=== PATIENT | male | born 1965 | race Caucasian/White ===

== ENCOUNTER 2024-05-25 06:50 | Day surgery (SDC) | payer BC ==
[~2024-05-25 06:50] MED LIST: Brimonidine 0.2% Ophth Soln 5 ML Bottle ONE; Dexamethasone/Neomycin/Polymyxin B Ophth Oint 3.5 GM Tube ONE; Lidocaine 1% 2 ML ONE; Phenyleprhine/Ketorolac 4 ML Vial ONE; Povidone-Iodine 5% Sterile Ophth Soln 30 ML Bottle ONE; Proparacaine 0.5% Ophth Soln 15 ML Bottle ONE
[2024-05-25] MEDS: Cyclopentolate 1% Opth Soln 2 ML Bottle EYERT SCH (07:00)
[2024-05-25] MEDS: Phenylephrine 2.5% Ophth Soln 2 ML Bot EYERT SCH (07:00)
[2024-05-25] MEDS ORDERED: Sodium Chloride 0.9% 10 ML Syringe FLUSH PRN (07:00)
[2024-05-25] MEDS: Tropicamide 1% Ophth Soln 3 ML Bottle EYERT SCH (07:00)
[2024-05-25] MEDS: Moxifloxacin 0.5% Ophth Soln 3 ML Bottle EYERT ONE ×2 (07:20→08:34)
[2024-05-25] MEDS ORDERED: fentaNYL 100 MCG/2 ML SDV ONE (07:28)
[2024-05-25] MEDS ORDERED: Midazolam 1 MG/ML 2 ML SDV ONE (07:29)
[2024-05-25] MEDS: Povidone-Iodine 5% Sterile Ophth Soln 30 ML Bottle EYERT ONE ×2 (08:33→08:41)
[2024-05-25] MEDS: Phenyleprhine/Ketorolac 4 ML Vial IO ONE ×2 (08:36)
[2024-05-25] MEDS: Lidocaine 1% PF 2 ML SDV INJECT ONE (08:37)
[2024-05-25] MEDS: Brimonidine 0.2% Ophth Soln 5 ML Bottle EYERT ONE (08:40)
[2024-05-25] MEDS: Balanced Salt Solution Ophth Irrig 500 ML Bottle IOCULAR ONE (08:41)
[2024-05-25] MEDS: Chondroitin Sulfate/Hyaluronate Sodium Ophth Inj 0.5 ML Syringe IOCULAR ONE (08:42)
[2024-05-25] MEDS: Dexamethasone/Neomycin/Polymyxin B Ophth Oint 3.5 GM Tube EYERT ONE (08:45)
[2024-05-25] MEDS ORDERED: ceFAZolin 500 MG Vial ONE (08:49)
[2024-05-25] MEDS: acetaZOLAMIDE 500 MG Cap.ER PO ONE (09:02)
== END 2024-05-25 09:18 | disposition home or self-care (01) ==
LOC: VM.SDS 06:50
PROVIDERS: ATTEND Ophthalmology
DX: E11.36 Type 2 diabetes mellitus with diabetic cataract (principal); H25.811 Combined forms of age-related cataract, right eye; Z79.84 Long term (current) use of oral hypoglycemic drugs; Z87.891 Personal history of nicotine dependence; Z79.899 Other long term (current) drug therapy
CPT/HCPCS: 66984; 82947; A9270; J0690; J1097; J2003; J2250; J3010; V2632; J3490

== ENCOUNTER 2024-06-29 07:05 | Day surgery (SDC) | payer BC ==
[2024-06-29] MEDS: Cyclopentolate 1% Opth Soln 2 ML Bottle EYELF SCH (07:17)
[2024-06-29] MEDS: Tropicamide 1% Ophth Soln 15 ML Bottle EYELF SCH (07:17)
[2024-06-29] MEDS: Phenylephrine 2.5% Ophth Soln 2 ML Bot EYELF SCH (07:17)
[2024-06-29] MEDS: Moxifloxacin 0.5% Ophth Soln 3 ML Bottle EYELF ONE ×2 (07:37→09:17)
[2024-06-29] MEDS ORDERED: Midazolam 1 MG/ML 2 ML SDV ONE (09:08)
[2024-06-29] MEDS: Povidone-Iodine 5% Sterile Ophth Soln 30 ML Bottle EYELF ONE (09:17)
[2024-06-29] MEDS: Phenyleprhine/Ketorolac 4 ML Vial IO ONE (09:18)
[2024-06-29] MEDS: Balanced Salt Solution Ophth Irrig 500 ML Bottle IOCULAR ONE (09:18)
[2024-06-29] MEDS: Lidocaine 1% PF 2 ML SDV INFILT ONE (09:18)
[2024-06-29] MEDS ORDERED: fentaNYL 100 MCG/2 ML SDV ONE (09:18)
[2024-06-29] MEDS: Chondroitin Sulfate/Hyaluronate Sodium Ophth Inj 0.5 ML Syringe IOCULAR ONE (09:19)
[2024-06-29] MEDS: Dexamethasone/Neomycin/Polymyxin B Ophth Oint 3.5 GM Tube EYELF ONE (09:19)
[2024-06-29] MEDS: Brimonidine 0.2% Ophth Soln 5 ML Bottle EYELF ONE (09:19)
[2024-06-29] MEDS: acetaZOLAMIDE 500 MG Cap.ER PO ONE (09:47)
== END 2024-06-29 09:56 | disposition home or self-care (01) ==
LOC: VM.SDS 07:05
PROVIDERS: ATTEND Ophthalmology
DX: E11.36 Type 2 diabetes mellitus with diabetic cataract (principal); H25.812 Combined forms of age-related cataract, left eye; E78.5 Hyperlipidemia, unspecified; Z87.891 Personal history of nicotine dependence; Z79.84 Long term (current) use of oral hypoglycemic drugs; Z79.899 Other long term (current) drug therapy
CPT/HCPCS: 66984; 82947; A9270; J1097; J2003; J2250; J3010; V2632; J3490